=== PATIENT | female | born 1970 | race Caucasian/White ===

== ENCOUNTER → 2024-03-08 19:45 | Outpatient (REF) | payer OTHER, SELFPAY | LOC: MRI 3T 19:45 | PROVIDERS: ATTENDING PHYSICIAN Specialist; FAMILY PHYSICIAN Nurse Practitioner | DX: R41.82 Altered mental status, unspecified (principal) | CPT/HCPCS: 70553; A9575 ==

== ENCOUNTER → 2024-11-27 16:16 | Outpatient (REF) | payer BC, SELFPAY | LOC: HWWDC 16:16 | PROVIDERS: ATTENDING PHYSICIAN Obstetrics & Gynecology; FAMILY PHYSICIAN Internal Medicine | DX: Z12.31 Encounter for screening mammogram for malignant neoplasm of breast (principal) | CPT/HCPCS: 77063; 77067 ==